=== PATIENT | female | born 1980 | race Caucasian/White ===

== ENCOUNTER 2025-08-01 08:52 | Day surgery (SDC) | payer BC ==
[2025-07-29 17:06] VITALS: BMI 24.7
[2025-08-01 11:39] VITALS: RESP 16; TEMP 97.4
[2025-08-01 12:05] VITALS: BP 112/67; PULSE 62
== END 2025-08-01 12:30 | disposition home or self-care (01) ==
LOC: FASU-ENDO 08:52
PROVIDERS: ATTEND Internal Medicine Gastroenterology
PROC: 0DB78ZX Excision of Stomach, Pylorus, Via Natural or Artificial Opening Endoscopic, Diagnostic (ICD-10-PCS; 2025-08-01)
PROC: 0DB68ZX Excision of Stomach, Via Natural or Artificial Opening Endoscopic, Diagnostic (ICD-10-PCS; 2025-08-01)
PROC: 0DB48ZX Excision of Esophagogastric Junction, Via Natural or Artificial Opening Endoscopic, Diagnostic (ICD-10-PCS; 2025-08-01)
PROC: 0DB98ZX Excision of Duodenum, Via Natural or Artificial Opening Endoscopic, Diagnostic (ICD-10-PCS; principal; 2025-08-01 11:05)
DX: K21.00 Gastro-esophageal reflux disease with esophagitis, without bleeding (principal); K31.A11 Gastric intestinal metaplasia without dysplasia, involving the antrum; K22.89 Other specified disease of esophagus; K31.89 Other diseases of stomach and duodenum
CPT/HCPCS: 81025; 88305-TC; 88342-TC